=== PATIENT | female | born 1995 | race Caucasian/White ===

== ENCOUNTER 2016-07-10 15:19 | Emergency (ER) | payer OTHER ==
[2016-07-10] MEDS ORDERED: FAMOTIDINE 20 MG/50 ML IVPB 50 ML IVPB ONE ×2 (15:23→15:38)
[2016-07-10] MEDS ORDERED: SODIUM CHLORIDE 1,000 ML IV STA (15:23)
[2016-07-10] MEDS ORDERED: ONDANSETRON 4 MG/2 ML VIAL IVPB ONE (15:23)
--- NOTE | 2016-07-10 15:35 | PDOC ---
History of Present Illness - History of Present Illness Initial Comments: 07/10/16 15:52 The patient is a 20 year old female with a past medical hx of thyroid nodules, polycystic ovarian syndrome who presents to the ED complaining of nausea, vomiting, diarrhea, and abdominal cramping since today. The patient states she is having difficulty tolerating food or liquids by mouth .She has had multiple episodes of diarrhea and vomiting. She describes her stool as loose, watery, and brown. She notes possible sick contacts from her job or a recent [place]. The patient denies any fever or chills. The patient denies any chest pain, SOB. The patient denies any dysuria, frequency. Social: No tobacco use reported Allergies: Penicillin Surgical: None reported PCP: N/A <Kimmie Delgado - Last Filed: 07/10/16 15:52> - General History Source: Patient Exam Limitations: No Limitations <Virgil Schmidt - Last Filed: 07/10/16 17:03> - General Chief Complaint: Nausea Stated Complaint: N/V/D Time Seen by Provider: 07/10/16 15:23 Past History <Kimmie Delgado - Last Filed: 07/10/16 15:52> - Past Medical History Asthma: Yes GI Disorders: Yes (GERD) Psychiatric Problems: Yes (ANXIETY) Thyroid Disease: Yes (GOITER AND NODULE) - Immunization History Immunization Up to Date: Yes - Psycho/Social/Smoking Cessation Hx Anxiety: Yes Suicidal Ideation: No Smoking Status: No Smoking History: Never smoked Have you smoked in the past 12 months: No Number of Cigarettes Smoked Daily: 0 Hx Alcohol Use: No Drug/Substance Use Hx: No Substance Use Type: None <Virgil Schmidt - Last Filed: 07/10/16 17:03> - Past Medical History Allergies/Adverse Reactions: Allergies Allergy/AdvReac Type Severity Reaction Status Date / Time Penicillins Allergy Verified 07/10/16 15:56 Home Medications: Ambulatory Orders Sertraline HCl 50 mg PO DAILY 09/26/15 Diazepam [Valium] 5 mg PO PRN 07/10/16 Mag Hydrox/Al Hydrox/Simeth [Mylanta Suspension -] 30 ml PO Q6H PRN #1 bottle Ondansetron HCl [Zofran] 4 mg PO Q6H PRN #15 tablet 07/10/16 Ranitidine HCl [Zantac] 150 mg PO BID PRN #14 tablet 07/10/16 Review of Systems - Review of Systems Able to Perform ROS?: Yes Comments:: 07/10/16 15:53 GENERAL/CONSTITUTIONAL: No fever or chills. No weakness. HEAD, EYES, EARS, NOSE AND THROAT: No change in vision. No ear pain or discharge. No sore throat. CARDIOVASCULAR: No chest pain or shortness of breath. RESPIRATORY: No cough, wheezing, or hemoptysis. GASTROINTESTINAL: + nausea, vomiting, diarrhea, abdominal cramping. No constipation. GENITOURINARY: No dysuria, frequency, or change in urination. MUSCULOSKELETAL: No joint or muscle swelling or pain. No neck or back pain. SKIN: No rash NEUROLOGIC: No headache, vertigo, loss of consciousness, or change in strength/ sensation. ENDOCRINE: No increased thirst. No abnormal weight change. HEMATOLOGIC/LYMPHATIC: No anemia, easy bleeding, or history of blood clots. ALLERGIC/IMMUNOLOGIC: No hives or skin allergy. <Kimmie Delgado - Last Filed: 07/10/16 15:52> *Physical Exam - Physical Exam Comments: 07/10/16 15:54 GENERAL: Awake, alert, and fully oriented, in no acute distress HEAD: No signs of trauma EYES: PERRLA, EOMI, sclera anicteric, conjunctiva clear ENT: Auricles normal inspection, hearing grossly normal, nares patent, oropharynx clear without exudates. Moist mucosa NECK: Normal ROM, supple, no lymphadenopathy, JVD, or masses LUNGS: Breath sounds equal, clear to auscultation bilaterally. No wheezes, and no crackles HEART: Regular rate and rhythm, normal S1 and S2, no murmurs, rubs or gallops ABDOMEN: +Tenderness to the epigastric region. [place] sign negative. Soft, normoactive bowel sounds. No guarding, no rebound. No masses EXTREMITIES: Normal range of motion, no edema. No clubbing or cyanosis. No cords, erythema, or tenderness NEUROLOGICAL: Cranial nerves II through XII grossly intact. Normal speech, normal gait SKIN: Warm, Dry, normal turgor, no rashes or lesions noted. <Kimmie Delgado - Last Filed: 07/10/16 15:52> Heart Score/ECG Review #1 ECG reviewed & interpreted by me at: 14:40 07/10/16 15:50 NSR 101, no std/gabby, TWI III, normal axis, normal intervals, QTC 482 msec. <Virgil Schmidt - Last Filed: 07/10/16 17:03> ED Treatment Course - LABORATORY CBC & Chemistry Diagram: 07/10/16 15:25 07/10/16 15:25 - Medications Given in the ED: ED Medications Discontinued Medications Generic Name Dose Route Start Last Admin Trade Name Tegan PRN Reason Stop Dose Admin Ondansetron HCl 4 mg 07/10/16 15:23 07/10/16 15:35 Zofran Injection IVPB 07/10/16 15:24 4 mg ONCE ONE Administration <Kimmie Delgado - Last Filed: 07/10/16 15:52> - LABORATORY CBC & Chemistry Diagram: 07/10/16 15:25 07/10/16 15:25 <Virgil Schmidt - Last Filed: 07/10/16 17:03> Medical Decision Making - Medical Decision Making 07/10/16 15:34 A portion of this note was documented by scribe services under my direction. I have reviewed the details of the note, within reason, and agree with the documentation with the following case summary and management plan written by me. Patient treated in the ED. Nursing notes are reviewed and incorporated into the medical decision-making. Vital signs reviewed. Peripheral IV access obtained by the nurse, laboratory studies are drawn and sent, reviewed and interpreted by myself. 20-year-old female patient with past medical history of thyroid nodules, polycystic ovarian syndrome presents to the emergency department with nausea, vomiting, diarrhea and abdominal cramping today. Patient denies any fevers or chills. 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 She has had multiple episodes of loose watery brown stools and emesis. Patient is having difficulty tolerating by mouth. I suspect that the patient is having gastroenteritis. We'll obtain labs and treat symptoms and give IV fluids and reassess. 07/10/16 17:00 CBC, BMP 07/10/16 15:25 07/10/16 15:25 CMP Sodium 134 mmol/L (136-145) L 07/10/16 15:25 Potassium 4.1 mmol/L (3.5-5.1) 07/10/16 15:25 Chloride 103 mmol/L (98-107) 07/10/16 15:25 Carbon Dioxide 23 mmol/L (22-28) 07/10/16 15:25 Anion Gap 8 (8-16) 07/10/16 15:25 BUN 17 mg/dl (7-18) D 07/10/16 15:25 Creatinine 0.7 mg/dl (0.6-1.3) 07/10/16 15:25 Creat Clearance w eGFR > 60 (>60) 07/10/16 15:25 Random Glucose 130 mg/dl (74-106) H D 07/10/16 15:25 Calcium 9.4 mg/dl (8.4-10.2) 07/10/16 15:25 Total Bilirubin 0.9 mg/dl (0.2-1.0) D 07/10/16 15:25 AST 55 U/L (10-42) H D 07/10/16 15:25 ALT 27 U/L (10-40) 07/10/16 15:25 Alkaline Phosphatase 85 U/L (32-92) 07/10/16 15:25 Total Protein 8.0 g/dl (6.4-8.3) 07/10/16 15:25 Albumin 4.1 g/dl (3.5-5.0) 07/10/16 15:25 Lipase 24 U/L (22-51) 07/10/16 15:25 Urine Test Results Urine Color Yellow 07/10/16 16:10 Urine Appearance Clear 07/10/16 16:10 Urine pH 5.0 (4.5-8) 07/10/16 16:10 Ur Specific [place] 1.025 (1.005-1.025) 07/10/16 16:10 Urine Protein Negative (NEGATIVE) 07/10/16 16:10 Urine Glucose (UA) Negative (NEGATIVE) 07/10/16 16:10 Urine Ketones Negative (NEGATIVE) 07/10/16 16:10 Urine Blood Trace (NEGATIVE) H 07/10/16 16:10 Urine Nitrite Negative (NEGATIVE) 07/10/16 16:10 Urine Bilirubin Negative (NEGATIVE) 07/10/16 16:10 Ur Leukocyte Esterase Negative (NEGATIVE) 07/10/16 16:10 Urine RBC None seen /hpf (0-3) 07/10/16 16:10 Urine WBC None seen (3-5) 07/10/16 16:10 Ur Epithelial Cells Rare /HPF 07/10/16 16:10 Urine Bacteria Rare /hpf (NEGATIVE) 07/10/16 16:10 Urine test negative. The patient reports feeling significantly better. Likely viral gastroenteritis. Supportive care. Patient will go home with parents. I discussed the physical exam findings, ancillary test results and final diagnoses with the patient. I answered all of the patient's questions. The patient was satisfied with the care received and felt comfortable with the discharge plan and treatment plan. The patient will call their primary care physician within 24 hours to arrange follow-up and will return to the Emergency Department with any new, persistant or worsening symptoms. <Virgil Schmidt - Last Filed: 07/10/16 17:03> *DC/Admit/Observation/Transfer - Attestations Scribe Attestion: 07/10/16 15:54 Documentation prepared by Kimmie Delgado, acting as medical sales associate for Virgil Schmidt MD. <Kimmie Delgado - Last Filed: 07/10/16 15:52> - Discharge Dispostion Admit: No <Virgil Schmidt - Last Filed: 07/10/16 17:03> Diagnosis at time of Disposition: Viral gastroenteritis - Discharge Dispostion Disposition: HOME Condition at time of disposition: Good - Prescriptions Prescriptions: Mag Hydrox/Al Hydrox/Simeth [Mylanta Suspension -] 30 ml PO Q6H PRN #1 bottle PRN Reason: Abdominal Pain Ranitidine HCl [Zantac] 150 mg PO BID PRN #14 tablet PRN Reason: Abdominal Pain Ondansetron HCl [Zofran] 4 mg PO Q6H PRN #15 tablet PRN Reason: Nausea - Patient Instructions Printed Discharge Instructions: DI for Viral Gastroenteritis -- Adult Additional Instructions: Please drink plenty of fluids and rest. You may take 650 mg tylenol every 4 hours as needed for pain/fever. Take 30 cc of maalox every 6 hours and/or 150 mg zantac every 12 hours as needed for abdominal pain. Take 4 mg zofran every 6 hours as needed for nausea. It may take several days before your symptoms improve. - Post Discharge Activity Work/School Note: Back to Work, Back to School
[2016-07-10] MEDS ORDERED: ONDANSETRON 4 MG/2 ML VIAL ONE (15:38)
[2016-07-10] MEDS ORDERED: ACETAMINOPHEN 325 MG TABLET (FP) PO ONE (15:39)
[2016-07-10] MEDS ORDERED: MAG HYDROX/AL HYDROX/SIMETH 30 ML UNIT-DOSE CUP PO ONE (15:39)
[2016-07-10] MEDS ORDERED: ACETAMINOPHEN 325 MG TABLET (FP) ONE (15:59)
[2016-07-10] MEDS ORDERED: MAG HYDROX/AL HYDROX/SIMETH 30 ML UNIT-DOSE CUP ONE (16:00)
[2016-07-10 16:08] LABS: MCH 29.7 pg (25.7-33.7); MCHC 33.2 g/dl (32.0-36.0); MEAN CELL VOLUME 89.5 fl (80-96); MEAN PLT VOLUME 9.9 fl (7.5-11.1); PLATELET COUNT 194 K/MM3 (134-434); RDW 12.7 % (11.6-15.6); WHITE BLOOD COUNT 10.4 K/mm3 (4.0-10.0)
[2016-07-10 16:18] LABS: ALBUMIN 4.1 g/dl (3.5-5.0); ALK PHOS 85 U/L (32-92); ANION GAP 8 (8-16); BILIRUBIN,TOTAL 0.9 mg/dl (0.2-1.0); CALCIUM 9.4 mg/dl (8.4-10.2); CO2 23 mmol/L (22-28); CREATININE 0.7 mg/dl (0.6-1.3); GLUCOSE,RANDOM 130 mg/dl (74-106); SGOT/AST 55 U/L (10-42); SGPT/ALT 27 U/L (10-40)
[2016-07-10 16:21] LABS: URINE APPEARANCE Clear; URINE BILIRUBIN Negative (NEGATIVE); URINE GLUCOSE (UA) Negative (NEGATIVE); URINE KETONE Negative (NEGATIVE); URINE LEUK ESTERASE Negative (NEGATIVE); URINE NITRITE Negative (NEGATIVE); URINE PROTEIN Negative (NEGATIVE); URINE UROBILINOGEN 0.2 E.U/dl (0.2-1.0)
[2016-07-10 16:28] LABS: URINE COLOR YELLOW
[2016-07-10 16:36] LABS: URINE BLOOD TRACE (NEGATIVE)
[2016-07-10 16:37] LABS: URINE BACTERIA RARE /hpf (NEGATIVE); URINE RBC NONE SEEN /hpf (0-3); URINE WBC NONE SEEN (3-5)
[2016-07-10 17:05] VITALS: BP 152/67; PULSE 91; TEMP 99; BMI 32.1
[2016-07-10 18:40] LABS: METAMYELOCYTE 4 % (0-2)
[2016-07-10 18:41] LABS: ANISOCYTOSIS 1+; PLATELET ESTIMATE ADEQUATE (NORMAL); SMUDGE CELLS FEW
== END 2016-07-10 17:15 | disposition home or self-care (01) ==
LOC: FER 15:19
PROC: 3E033GC Introduction of Other Therapeutic Substance into Peripheral Vein, Percutaneous Approach (ICD-10-PCS; principal; 2016-07-10)
PROC: 3E0337Z Introduction of Electrolytic and Water Balance Substance into Peripheral Vein, Percutaneous Approach (ICD-10-PCS; 2016-07-10)
DX: A08.4 Viral intestinal infection, unspecified (principal)
CPT/HCPCS: 36415; 80053; 81003; 81015; 83690; 84703; 85025; 87086; 99281-25

== ENCOUNTER 2018-03-13 06:35 | Day surgery (SDC) | payer OTHER ==
[2018-03-12 08:52] VITALS: BMI 32.3
--- NOTE | 2018-03-12 18:43 | PREOP ---
DATE OF ADMISSION: 03/13/2018 ADMISSION DIAGNOSIS: Recurrent tonsillitis. HISTORY OF PRESENT ILLNESS: This 22-year-old female has had a long history of recurrent tonsil infections over many years. Many of these have been strep. She has been treated with numerous courses of antibiotics. Often she does have some chronic infection, does not completely resolve even after multiple courses of antibiotics. She was found to have low Streptococcus pneumoniae titers and has had Pneumovax vaccine. She continues to get infections. Exam demonstrates chronic hypertrophic tonsillitis. She is now admitted for tonsillectomy. PAST MEDICAL HISTORY: Primary medical doctor is Dr. Nestor Larson. Past medical history includes thyroid problems, anxiety, eczema, possible polycystic ovaries. PAST SURGICAL HISTORY: The patient has had prior adenoidectomy. ANESTHESIA PROBLEMS: None. BLEEDING HISTORY: Negative. FAMILY HISTORY: Negative for bleeding problems. ANESTHESIA HISTORY: The patient's mother had some postoperative nausea and vomiting. The patient's last menstrual period was February 21, 2018. ALLERGIES TO MEDICATIONS: None known. PRESENT MEDICATIONS: Include fluticasone, Kariva, metformin, omeprazole, penicillin VK, Pepcid and sertraline. HABITS: She does not smoke. PHYSICAL EXAMINATION:General: The patient is a well-developed female in no distress. HEENT: Head is normal. Eyes are clear. Ears are unremarkable. Oropharynx shows mild tonsil enlargement. Neck: Has no adenopathy. IMPRESSION: Recurrent and chronic tonsillitis. PLAN: Tonsillectomy under general anesthesia. INFORMED CONSENT: The patient understands the indications, alternatives, nature, risks and benefits of the proposed surgery. Potential complications including, but not limited to, anesthesia, bleeding, infection, ear pain, bad breath, stiff neck, nasal regurgitation, and voice change were discussed in detail. She understands and accepts these risks and wishes to proceed with surgery. PERICO BUCHANAN M.D. [id number]
--- NOTE | 2018-03-13 07:47 | HP ---
History & Physical Update - History History: No Change - Physical Physical: No Change - Assessment Assessment: No Change - Plan Plan: No Change
[2018-03-13] MEDS ORDERED: MIDAZOLAM HCL 2 MG/2 ML SINGLE DOSE VIAL ONE (07:56)
[2018-03-13] MEDS ORDERED: fentaNYL CITRATE 250 MCG/5 ML VIAL ONE (08:04)
[2018-03-13] MEDS ORDERED: ROCURONIUM BROMIDE 50 MG/5 ML VIAL ONE (08:04)
[2018-03-13] MEDS ORDERED: PROPOFOL 20 ML ONE (08:04)
[2018-03-13] MEDS ORDERED: BUPIVACAINE HCL/PF 0.25% (2.5MG/ML) 10 ML VIAL ONE (08:07)
[2018-03-13] MEDS ORDERED: BUPIVACAINE HCL/PF 0.25% (2.5MG/ML) 10 ML VIAL IJ ONE (08:29)
[2018-03-13] MEDS ORDERED: ePHEDrine SULFATE 50 MG/1 ML AMPULE ONE (09:00)
[2018-03-13] MEDS ORDERED: GLYCOPYRROLATE 0.2 MG/1 ML VIAL ONE ×2 (09:17)
[2018-03-13] MEDS ORDERED: NEOSTIGMINE METHYLSULFATE 0.5 MG/ML - 10 ML MDV ONE (09:17)
--- NOTE | 2018-03-13 09:34 | OP ---
Operative Note - Note: Operative Date: 03/13/18 ([id number]) Pre-Operative Diagnosis: recurrent tonsillitis Operation: tonsillectomy Findings: chronic tonsillitis Post-Operative Diagnosis: Same as Pre-op Surgeon: Lino Jackson Anesthesiologist/FIRE WARDEN: Lino Almonte Anesthesia: General Specimens Removed: right tonsil, left tonsil Estimated Blood Loss (mls): 40 Blood Volume Replaced (mls): 0 Operative Report Dictated: Yes
[2018-03-13] MEDS ORDERED: oxyCODONE HCL 5 MG TABLET PO PRN ×2 (09:36→09:44)
[2018-03-13] MEDS ORDERED: PROMETHAZINE HCL 25 MG/1 ML VIAL IVPUSH PRN (09:44)
[2018-03-13] MEDS ORDERED: ONDANSETRON 4 MG/2 ML VIAL IVPUSH PRN (09:44)
[2018-03-13] MEDS ORDERED: LACTATED RINGERS SOLUTION 1,000 ML IV SCH ×2 (09:45)
--- NOTE | 2018-03-13 10:25 | OP ---
DATE OF OPERATION: 03/13/2018 PREOPERATIVE DIAGNOSIS: Recurrent/chronic tonsillitis. POSTOPERATIVE DIAGNOSIS: Recurrent/chronic tonsillitis. PROCEDURE: Tonsillectomy. SURGEON: Perico Jackson MD ANESTHESIOLOGIST: Perico Almonte MD ANESTHESIA: General via endotracheal tube. INDICATIONS: This 22-year-old female has had a long history of recurrent tonsillitis, often strep, and sometimes episodes of chronic tonsillitis. She was found to be low strep pneumo titers and received Pneumovax but continued to have infections. Exam demonstrates mildly enlarged tonsils. She is now brought to surgery for treatment. FINDINGS: Chronic, slightly hypertrophic tonsillitis. DESCRIPTION OF PROCEDURE: Patient was brought to the operating room and placed on the operating table in supine position. General endotracheal anesthesia was induced to a satisfactory level. She was prepped and draped in the usual fashion for surgery. A McIvor mouth gag with a ring blade was inserted and the oropharynx exposed. Tonsils were present. Adenoids were not present. Soft palate and uvula were normal, and there was no evidence of submucus cleft palate. Hypopharyngeal pack was placed. Marcaine 0.25% plain was infiltrated in the peritonsillar areas. The right tonsil was retracted medially and the anterior pillar incised with the Coblation device. The peritonsillar plane was entered and Coblation dissection on the capsule of the tonsil allowed removal of the tonsil and its surrounding tissue. Mild to moderate scarring was encountered. Hemostasis was achieved with bipolar cauterization. The left tonsil was then retracted medially, the anterior pillar was incised and the peritonsillar plane entered. Coblation dissection upon the capsule of the tonsil allowed removal of the tonsil and its surrounding tissue. Again mild to moderate scarring was encountered. Some bleeding was also encountered, which was controlled with bipolar as well as monopolar suction cautery. After incomplete hemostasis was achieved because of the large raw area, two 3-0 Vicryl sutures were placed on each side to approximate the anterior and posterior pillars. The hypopharyngeal pack was removed, the stomach was suctioned of a small amount of clear fluid. Patient tolerated the procedure well. She was then awakened from general anesthesia and transferred to the PACU in stable condition. Estimated blood loss was 40 mL. She received crystalloid during the procedure. Right tonsil and left tonsil were sent to Pathology for routine studies. There were no complications. PERICO JACKSON M.D. [id number] MTDD
[2018-03-13] MEDS ORDERED: oxyCODONE HCL 5 MG TABLET ONE (12:17)
[2018-03-13 12:28] VITALS: BP 125/79; PULSE 73; TEMP 98.2
--- NOTE | 2018-03-14 16:21 | PATH ---
Surgical Pathology Report Patient Name: COLUMBA RUSH Med. Rec. #: [id number] /Age/Gender: 1995 (Age: 22) / F Account: [id number] Location: [facility] SURGICAL Taken: 03/13/2018 Received: 03/13/2018 Reported: 03/14/2018 Physicians: Lino Jackson M.D. Specimen(s) Received A: LEFT TONSIL B: RIGHT TONSIL Clinical History Chronic tonsillitis Final Diagnosis A. 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 B. 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 Electronically Signed Xiomy Rousseau M.D. Gross Description A. Received in formalin labeled "left tonsil," is a 3.7 x 2.4 x 1.3 cm ovoid portion of soft tissue, consistent with a tonsil. The outer surface is king-red, convoluted and varies from smooth to cauterized. Sectioning reveals focally hemorrhagic parenchyma with yellow granules and cryptic architecture. No discrete lesions are identified. [place] sections are submitted in one cassette. B. Received in formalin labeled "right tonsil," is a 3.3 x 2.4 x 1.3 cm ovoid portion of soft tissue, consistent with a tonsil. The outer surface is king-red, convoluted and varies from smooth to cauterized. Sectioning reveals focally hemorrhagic parenchyma with yellow granules and cryptic architecture. No discrete lesions are identified. A sales representative facility services section is submitted in one cassette. 03/13/201803/13/2018
== END 2018-03-13 14:00 | disposition home or self-care (01) ==
LOC: JASU-SURG 06:35
PROVIDERS: ATTEND Otolaryngology
PROC: 0CTPXZZ Resection of Tonsils, External Approach (ICD-10-PCS; principal; 2018-03-13 08:00)
DX: J03.90 Acute tonsillitis, unspecified (principal); J35.01 Chronic tonsillitis
CPT/HCPCS: 84703; 88304-TC; 94760